=== PATIENT | male | born 1950 | race Caucasian/White ===

== ENCOUNTER 2023-01-14 19:23 | Emergency (ER) | payer MEDICARE, OTHER, SELFPAY ==
[2023-01-14 19:24] VITALS: BP 125/65; PULSE 67; RESP 13; TEMP 36.3; O2SAT 97; BMI 32.2
--- NOTE | 2023-01-14 19:40 | EX.ED.DYSGE1 ---
HPI <JOSE Martinez - Last Filed: 01/14/23 21:28> History of Present Illness Chief Complaint: Palpitations Narrative Narrative: Patient is a 72-year-old male with history of palpitations, glaucoma, he takes metoprolol, aspirin daily who presents to the emergency department for ongoing palpitations. Patient states that he does follow-up with his PCP as well as multimedia editor at [place] for these palpitations. Patient states that usually are intermittent and last 10 minutes and then he coughs and they go away. Today, he states he started feeling them this morning, he states that they did not stop until his daughter came to pick him up. Patient states that he felt his palpitations all day and he called his daughter once his daughter got to his house roughly 1 hour ago, they stopped. Patient is asymptomatic at this time. Patient denies any fever or chills, denies any diaphoresis. PFSH <JOSE Martinez - Last Filed: 01/14/23 21:28> [facility] Medical History no medical history Home Medications metoprolol succinate 50 mg tablet,extended release 24 hr 75 mg (1.5 x 50 mg) PO BID 30 days #90 tabs 01/14/23 [Rx Last Taken Unknown] metoprolol tartrate 50 mg tablet 50 mg PO DAILY PRN Palpitaions #10 tabs 01/14/23 [Rx Last Taken Unknown] Allergy/AdvReac Type Severity Reaction Status Date / Time No Known Allergies Allergy Verified 01/14/23 19:24 Social History Smoking Status: Never smoker ROS <JOSE Martinez - Last Filed: 01/14/23 21:28> ROS ED ROS Narrative Constitutional: Negative for fever, chills, weight loss, weakness Eyes: Negative for vision loss, vision change, double vision ENT: Negative for any sore throat, ear pain, congestion Cardiovascular: Negative for any chest pain, tightness. Positive for palpitations Respiratory: Negative for any cough, sputum production, hemoptysis, dyspnea, dyspnea on exertion, orthopnea Gastrointestinal: Negative for any abdominal pain, nausea, vomiting, diarrhea, constipation, blood in stool, blood in vomit : Negative for any urinary frequency, dysuria, retention, blood in urine Muscle skeletal: Negative for any muscle joint pain, stiffness, myalgias, arthralgias, neck pain, back pain Neurological: Negative for any headache, syncope, numbness or tingling, dizziness Skin: Negative for any rashes, lumps, itching, abrasions, lacerations Psychiatric: Negative for any depression, anxiety, stress, suicidal ideation, homicidal ideation Hematologic: Negative for any easy bruising, excessive bruising, easy bleeding Allergies: Negative for any eczema, hives, rash EXAM <JOSE Martinez - Last Filed: 01/14/23 21:28> Physical Exam Narrative Exam Narrative: Vital signs reviewed. HEET: Head normocephalic atraumatic, TMs clear bilaterally. Posterior pharynx is clear, moist mucous membranes. Nares clear bilaterally. Neck: Supple with no lymphadenopathy or tenderness. No signs of meningismus, negative jolt sign. Cardiac: Irregular rate no murmurs gallops or rubs, equal peripheral pulses bilaterally. Respiratory: Lungs clear to auscultation bilaterally. No chest tenderness. Abdomen: Soft, nontender, nondistended. No abdominal bruit or pulsatile masses. No hepatosplenomegaly Extremities: No peripheral edema, no signs of gross trauma or deformity. Active full range of motion of all extremities. Neuro: Cranial nerves II through XII intact, no focal neurological deficits. Skin: Clean dry and intact with no rash, purpura, petechiae, vesicles or pustules. Backs/flank: No CVA tenderness, no midline spinal tenderness, no deformity. Psych: Normal mood and affect. No SI, HI or acute psychosis. Const Vital Signs: 01/14/23 19:24 01/14/23 19:45 01/14/23 20:59 Temperature 97.3 F L Temperature Source Temporal Pulse Rate 67 54 L Respiratory Rate 13 14 Blood Pressure 125/65 H 143/75 H Blood Pressure Mean 85 97 Pulse Ox 97 99 Oxygen Delivery Method Room Air Room Air 01/14/23 21:00 Temperature Temperature Source Pulse Rate 53 L Respiratory Rate 15 Blood Pressure 128/66 H Blood Pressure Mean 86 Pulse Ox 97 Oxygen Delivery Method Room Air <Ervin Gallardo MD - Last Filed: 01/14/23 22:08> Physical Exam Const Vital Signs: 01/14/23 19:24 01/14/23 19:45 01/14/23 20:59 Temperature 97.3 F L Temperature Source Temporal Pulse Rate 67 54 L Respiratory Rate 13 14 Blood Pressure 125/65 H 143/75 H Blood Pressure Mean 85 97 Pulse Ox 97 99 Oxygen Delivery Method Room Air Room Air 01/14/23 21:00 Temperature Temperature Source Pulse Rate 53 L Respiratory Rate 15 Blood Pressure 128/66 H Blood Pressure Mean 86 Pulse Ox 97 Oxygen Delivery Method Room Air [facility] <Thompson LomeliJOSE - Last Filed: 01/14/23 21:28> [facility] Lab Data Labs: Laboratory Results - last 24 hr 01/14/23 19:45 WBC 9.3 RBC 4.86 Hgb 14.1 Hct 41.8 MCV 86.0 MCH 29.0 MCHC 33.7 RDW Std Deviation 41.5 RDW Coeff of Reuben 13.3 Plt Count 269 MPV 9.9 Immature Gran % (Auto) 0.600 Neut % (Auto) 68.1 Lymph % (Auto) 18.6 L [place] % (Auto) 9.4 Eos % (Auto) 2.9 Baso % (Auto) 0.4 Absolute Neuts (auto) 6.3 Absolute Lymphs (auto) 1.73 Nucleated RBC % 0 Sodium 138 Potassium 3.7 Chloride 108 H Carbon Dioxide 23.0 Anion Gap 7 BUN 18 Creatinine 1.04 Estim Creat Clear Calc 74.69 Est GFR (MDRD) Af Amer 91 Est GFR (MDRD) Non-Af 75 BUN/Creatinine Ratio 17.3 Glucose 108 H Calcium 9.6 Troponin I High Sens 16 TSH 3.48 Radiography Diagnostic Testing: Clinical Impression(s) from Imaging Studies Chest X-Ray 01/14/23 20:10 IMPRESSION: 1. No radiographic evidence of acute cardiopulmonary disease. Electronically Signed: Evaristo Patton DO at 21:19 EDT , EKG EKG shows sinus rhythm with PACs, rate 62: Attestation: I personally reviewed and interpreted this EKG as follows: Interpretation: Sinus Rhythm Comments: Sinus rhythm with a rate of 62, PACs noted, NM 142 ms, QRS duration 98 ms, no acute ST elevation, no acute infarct noted. Treatment and Re-Evaluation :: Patient appears generally well, patient appears nontoxic, vital signs are stable. Patient presents the emergency department with palpitations throughout the day. Patient is asymptomatic at this time. Upon my initial evaluation, patient does appear to be having PACs. However patient states he does not feel this palpation sensation. He received cardiac work-up including basic laboratory values to look for any electrolyte imbalance, EKG, chest x-ray, troponin While patient was on the monitor, patient did have a run of palpitations which is heart rate of the 170-180. Look to be SVT. Patient then went back to his original rhythm in the 60s. This lasted multiple seconds. Patient has had 3 episodes of tachycardia here. I did reach out to the patient's multimedia editor.Patient CBC was unremarkable, chemistries were unremarkable, patient's troponin was negative. TSH was within normal limits. Again I spoke with the patient's multimedia editor group at [place]. The patient will be discharged home, patient will follow-up in the office this coming week. The patient will change his metoprolol dose. He will take 75 mg of the long-acting which is the succinate twice a day. He will be given 50 mg tartrate which is the fast acting to take if the patient has a tachycardic episode greater than 5 minutes. If it continues he will go to the emergency department. At this time, patient has no reason for admission at this time. He will follow-up closely. All questions were answered, patient stable for discharge. <Ervin Gallardo MD - Last Filed: 01/14/23 22:08> [facility] Narrative Medical decision making narrative: Dr. Gallardo: I have personally performed a face to face assessment of the patient and have reviewed the ALIS Note. I performed a substantive portion of the visit including all aspects of the following. My azar findings include: History is palpitations with history of SVT. On metoprolol 100 mg. Patient relates history that he was told by his multimedia editor if the metoprolol is ineffective in treating his SVT that he will require ablation. Patient with multiple episodes of rapid heart rate and palpitations today. Exam is afebrile. Vital signs noted. Regular rate and rhythm. Lungs clear to auscultation bilaterally. Intermittent bradycardia. Abdomen soft and nontender with normal active bowel sounds. Neurological examination nonfocal and nonlateralizing. Medical Decision Making: On the monitor, patient has multiple runs of SVT that are nonsustained. Check EKG. Check labs. Discussed with cardiology. Change metoprolol to 75 mg XL by mouth twice a day with 50 mg of metoprolol tartrate as needed for breakthrough sustained SVT. Follow-up with cardiology. Discharge. Other additions or changes: [None] Lab Data Attestation: I reviewed the patient's lab results. Labs: Laboratory Results - last 24 hr 01/14/23 19:45 WBC 9.3 RBC 4.86 Hgb 14.1 Hct 41.8 MCV 86.0 MCH 29.0 MCHC 33.7 RDW Std Deviation 41.5 RDW Coeff of Reuben 13.3 Plt Count 269 MPV 9.9 Immature Gran % (Auto) 0.600 Neut % (Auto) 68.1 Lymph % (Auto) 18.6 L [place] % (Auto) 9.4 Eos % (Auto) 2.9 Baso % (Auto) 0.4 Absolute Neuts (auto) 6.3 Absolute Lymphs (auto) 1.73 Nucleated RBC % 0 Sodium 138 Potassium 3.7 Chloride 108 H Carbon Dioxide 23.0 Anion Gap 7 BUN 18 Creatinine 1.04 Estim Creat Clear Calc 74.69 Est GFR (MDRD) Af Amer 91 Est GFR (MDRD) Non-Af 75 BUN/Creatinine Ratio 17.3 Glucose 108 H Calcium 9.6 Troponin I High Sens 16 TSH 3.48 Radiography Diagnostic Testing: Clinical Impression(s) from Imaging Studies Chest X-Ray 01/14/23 20:10 IMPRESSION: 1. No radiographic evidence of acute cardiopulmonary disease. Electronically Signed: Evaristo Patton DO at 21:19 EDT , Discharge Plan Triage Chief Complaint: Palpitations ED Midlevel Provider: Thompson Lomeli ED Provider: Ervin Gallardo Dx/Rx/DC Orders Clinical Impression: Heart palpitations, Tachycardia Prescriptions: New metoprolol succinate 50 mg tablet extended release 24 hr 75 mg PO BID 30 Days Qty: 90 0RF metoprolol tartrate 50 mg tablet 50 mg PO DAILY PRN (Reason: Palpitaions ) Qty: 10 0RF Rx Instructions: If you have long acting palpitations greater than 5 minutes, take the metoprolol 50 mg. If it does not resolve in 20 to 30 minutes, you may go to the emergency department. Primary Care Provider: Maxime Avilez Referrals: Maxime Avilez MD [Primary Care Provider] - Activity Restrictions/Additional Instructions: Please follow-up with your multimedia editor this upcoming week. Again you only take the 50 mg metoprolol for palpitations lasting greater than 5 minutes. Only take 1, if it continues go to the ER. Disposition Disposition: Home, Self Care Discharge Date/Time: 01/14/23 21:33
[2023-01-14] MEDS: 0.9% Normal Saline 1,000 ML 1000 ML IV (19:53)
[2023-01-14] MEDS: Aspirin 81 MG TAB.CHEW 324 MG PO (19:54)
[2023-01-14 20:03] LABS: Absolute Lymphocyte Count 1.73 X10^3/uL (0.83-4.51); Absolute Neutrophil Count 6.3 X10^3/uL (2.0-7.7); Basophil# 0.04 X10^3/uL; Basophil% 0.4 % (0-1); Eosinophil# 0.27 X10^3/uL; Eosinophils% 2.9 % (0-5); Hematocrit 41.8 % (40-54); Hemoglobin 14.1 g/dL (13.0-16.5); Lymphocyte # 1.73 X10^3/ul (0.83-4.51); Lymphocyte % 18.6 % (19-41); Mean Corp Hgb Conc 33.7 g/dL (32-36); Mean Platelet Vol. 9.9 fl (6.2-12.0); Monocyte# 0.88 X10^3/uL; Monocyte% 9.4 % (0-10); NRBC Flagged by Analyzer 0 % (0-5); Neutrophil # 6.34 X10^3/uL (2.7-7.7); Neutrophil % 68.1 % (47-70); Platelet Count 269 K/mm3 (150-450); RBC Distribution Width CV 13.3 % (11.6-14.6); RBC Distribution Width SD 41.5 fl (35.1-43.9); Red Blood Count 4.86 M/mm3 (4.6-6.2); White Blood Count 9.3 K/mm3 (4.4-11.0)
--- NOTE | 2023-01-14 20:10 | RAD_ITS ---
INDICATION: chest pain EXAMINATION/TECHNIQUE: X-RAY - XR Chest 2 Views COMPARISON: No relevant prior comparison studies available. FINDINGS: LINES/DEVICES: None. LUNGS: Symmetric normal lung volumes. No airspace opacity or abnormal interstitial pattern. No nodule or mass. No pleural effusion or pneumothorax. MEDIASTINUM AND CARDIOVASCULAR STRUCTURES: Normal size and contour of the cardiomediastinal silhouette. No evidence of pulmonary vascular congestion. Aortic arch intimal calcifications. BONES AND SOFT TISSUES: No fracture or focal osseous lesion. Bridging anterior osteophytes mid/distal thoracic spine. RAD/Chest PA and Lateral IMPRESSION: 1. No radiographic evidence of acute cardiopulmonary disease. Electronically Signed: Evaristo Patton DO at 21:19 EDT ,
[2023-01-14 20:30] LABS: Anion Gap 7 (5-15); BUN 18 mg/dL (7-18); BUN/Creat Ratio 17.3 RATIO (10-20); Calcium,Total 9.6 mg/dL (8.5-10.1); Chloride 108 mmol/L (98-107); Creatinine, Serum 1.04 mg/dL (0.70-1.30); EST Glomerular Filtration Rate 75 mL/min (>60); Est Glom Filt Rate - Afr Amer 91 mL/min (>60); Estimated Creatinine Clearance 74.69 ml/min; Glucose 108 mg/dL (74-106); Potassium 3.7 mmol/L (3.5-5.1); Sodium Level 138 mmol/L (136-145); Thyroid Stim Hormone (TSH) 3.48 uIU/mL (0.358-3.74); Troponin-I HS 16 pg/mL (3.0-78.0)
[2023-01-14 20:59] VITALS: BP 143/75; PULSE 54; RESP 14; O2SAT 99
[2023-01-14 21:00] VITALS: BP 128/66; PULSE 53; RESP 15; O2SAT 97
== END 2023-01-14 21:33 | disposition home or self-care (01) ==
PROVIDERS: Nurse Practitioner; Emergency Provider Emergency Medicine; PCP Family Medicine; Visit Provider Emergency Medicine
DX: R00.2 Palpitations (principal); R00.0 Tachycardia, unspecified
CPT/HCPCS: 71046; 80048; 84443; 84484; 85025; 93005; 96360; 99282; J7030; A4216

== ENCOUNTER → 2024-08-11 | Outpatient (CLI) | payer MEDICARE, OTHER, SELFPAY ==
--- NOTE | 2024-08-11 07:59 | MRI_ITS ---
PROCEDURE: SPINE LUMBAR (ROUTINE) 08/11/2024 REASON FOR EXAM: 73-year-old male, low back and bilateral leg pain x 2 years. No known injury, no surgeries. TECHNIQUE: Multiplaner MRI of the lumbar spine performed without contrast. Multiple pulse sequences were obtained. COMPARISON: None. FINDINGS: Vertebrae: No acute osseous fracture. The vertebral body heights are maintained. The bone marrow signal is unremarkable. Alignment: Grade 1 anterolisthesis of L5 onto S1. Conus Medullaris: Normal in signal, terminating at the T12 vertebral body. L1-2: Mild posterior disk bulge. No significant central or neural foraminal narrowing. L2-3: Mild posterior disk bulge. No significant central or neural foraminal narrowing. L3-4: Moderate disk space narrowing, with moderate posterior disk bulge. This results in moderate central and mild bilateral neural foraminal stenosis. L4-5: Moderate disk space narrowing, with moderate, posterior disk bulging, asymmetric to the right. This results in mild central and left neural, and moderate right neural foraminal stenosis. L5-S1: Mild disk bulge. Sacrum: The bilateral SI joints are grossly unremarkable. Partially visualized left posterior midpole T2 bright renal lesion, likely benign. 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 Reading Location: [id number]
== END | disposition home or self-care (01) ==
LOC: MRI 07:49
PROVIDERS: PCP Family Medicine; Referring Provider Anesthesiology; Visit Provider Anesthesiology
DX: M54.17 Radiculopathy, lumbosacral region (principal)
CPT/HCPCS: 72148